=== PATIENT | female | born 1990 | race Caucasian/White ===

== ENCOUNTER 2017-07-12 09:40 | Emergency (ER) | payer OTHER ==
--- NOTE | 2017-07-12 12:22 | EDPHY ---
H & P Smoking Status: Never smoked Time Seen by Provider: 07/12/17 09:52 HPI/ROS: CHIEF COMPLAINT: concerned about rabies HISTORY OF PRESENT ILLNESS: 26-year-old female presents emergency department wondering if she vaccination. Patient was in [place] playing with a stray cat 3 days ago. Patient reports the other people in a [place] a [place] a his friend way and they know it well. They said that she could pet the cat though it may nip at her. Pt states the cat nipped at her. She reports it did not break the skin. Patient reports she has series anxiety and is wondering if she a rabies vaccine. Patient denies fevers or chills, no body aches, no pain in this left hand. REVIEW OF SYSTEMS: A comprehensive 10 point review of systems is otherwise negative aside from elements mentioned in the history of present illness. (Rosio Leonardo) Physical Exam: GEN: Awake, alert, oriented, no acute distress RESP: nl resp effort MSK: Normal appearing SKIN: No break in skin (Rosio Leonardo) Constitutional: Initial Vital Signs Temperature (C) 36.8 C 07/12/17 10:06 Heart Rate 86 07/12/17 10:06 Respiratory Rate 14 07/12/17 10:06 Blood Pressure 127/84 H 07/12/17 10:06 O2 Sat (%) 96 07/12/17 10:06 O2 Delivery Mode Room Air Allergies/Adverse Reactions: cephalexin [From Keflex] Allergy (Verified 07/12/17 10:10) MDM/Departure - MDM ED Course/Re-evaluation: After reviewing the CDC website site and rabies in [place] I had a long discussion with the patient about the pros and cons of receiving the rabies vaccination and rabies IgG. Patient has elected to wait and follow up with [facility] on Friday. She is comfortable with this plan. She is given return precautions. (Rosio Leonardo) The patient wasevaluatedand managed by themidlevel provider. Idiscussed the patient's presentation and course with thephysicianassistantor nurse practitionerand agree with theevaluation. My co-signature indicates that I have reviewed this chart and I agree with the findings and plan of care as documented. I am the secondary supervisingphysician. Patient was bitten by a stray cat in [place]; cat well known to other villagers as being friendly, but occasionally will nip at you. (Bindu Savage) - Depart Disposition: Home, Routine, Self-Care Clinical Impression: possible rabies exposure Condition: Good Instructions: Rabies (ED) Additional Instructions: Follow up with infectious disease on Friday. Call Friday to schedule an appointment. Referrals: El Sellers MD [Medical Doctor] - As per Instructions
[2017-07-12 12:28] VITALS: TEMP 98.2
[2017-07-12 12:31] VITALS: BP 122/81; PULSE 68; RESP 16; O2SAT 97
== END 2017-07-12 12:29 | disposition home or self-care (01) ==
DX: Z20.3 Contact with and (suspected) exposure to rabies (principal)

== ENCOUNTER → 2017-07-18 | Outpatient (CLI) | payer OTHER | LOC: FIMAGING 08:54 | PROVIDERS: ATTEND Internal Medicine Endocrinology, Diabetes & Metabolism | DX: E04.2 Nontoxic multinodular goiter (principal) ==